=== PATIENT | female | born 1955 | race Hispanic/Latino ===

== ENCOUNTER → 2023-08-30 | Outpatient (REF) | payer MEDICARE ==
[~2023-08-30] MED LIST: GADOBENATE DIMEGLUMINE 1 ML IV ONE
[2023-08-30 09:00] LABS: CREATININE, SERUM 0.76 mg/dL (0.57-1.11)
== END ==
LOC: MRI 07:44
PROVIDERS: ATTEND Urology
DX: D41.00 Neoplasm of uncertain behavior of unspecified kidney (principal)
CPT/HCPCS: 36415; 74183; 82565; 84520